=== PATIENT | female | born 1950 | race Caucasian/White ===

== ENCOUNTER 2018-10-19 22:39 | Emergency (ER) | payer MEDICARE ==
[~2018-10-19] VITALS: Ht 167.6 cm; Wt 122.6 kg
[2018-10-19] MEDS ORDERED: ONDANSETRON HCL/PF 4 MG/2 ML VIAL ONE (23:19)
[2018-10-19] MEDS ORDERED: IV NS 0.9% 1,000 ML BAG IV ONE (23:30)
[2018-10-19] MEDS ORDERED: DICYCLOMINE HCL INJ 20 MG/2 ML AMPUL IM ONE ×2 (23:30→23:33)
[2018-10-19] MEDS ORDERED: ONDANSETRON HCL/PF 4 MG/2 ML VIAL IVP ONE (23:30)
--- NOTE | 2018-10-19 23:30 | NUR ---
BIBSELF FROM HOME. AAOX4. NO RESP DISTRESS. AMBULATORY WITH WALKER. TO ER BED 9. C/O ABDOMINAL PAIN X 2 HOURS AGO AFTER EATING SALAD. PT REPORT NAUSEA, VOMITING AND DIARRHEA. PT DESCRIBES PAIN CRAMPING 01/06. MD AT BEDSIDE FOR EVAL. ORDERS RECEIVED
[2018-10-19 23:34] LABS: HEMOGLOBIN 10.9 g/dL (11.5-14.8); LYMPHOCYTES # (AUTO) 2.2 /CMM (0.8-4.8); MONOCYTES # (AUTO) 0.3 /CMM (0.1-1.30)
[2018-10-19 23:35] LABS: APPEARANCE,URINE Slightly Cloudy (CLEAR); BILIRUBIN,URINE Negative (NEGATIVE); BLOOD, URINE Trace-lysed Ery/uL (NEGATIVE); COLOR,URINE Yellow (YELLOW); KETONES,URINE Negative (NEGATIVE); LEUKOCYTE ESTERASE ,URINE Moderate (NEGATIVE); NITRITE, URINE Negative (NEGATIVE); PROTEIN,URINE Negative (NEGATIVE); UGLUCOSE Negative (NEGATIVE); UROBILINOGEN,URINE 0.2 EU/dL (0.2)
--- NOTE | 2018-10-19 23:35 | NUR ---
IV LINE OBATAINED ON R AC20G. BLOOD DRAWN AND GIVENT O IMPORT EXPORT COORDINATOR AT BEDSIDE.
[2018-10-19 23:41] LABS: BASOPHILS % (AUTO) 0.6 % (0.0-2.0); EOSINOPHILS % (AUTO) 2.1 % (0.0-6.0); HEMATOCRIT 33 % (33-45); LYMPHOCYTES % (AUTO) 54.8 % (20.0-44.0); MEAN CORPUSCULAR HGB CONC 34 g/dl (31.0-36.0); MEAN CORPUSCULAR VOLUME 108 fL (82-100); NEUTROPHILS # (AUTO) 1.4 /CMM (1.8-8.9); NEUTROPHILS % (AUTO) 34.5 % (43.0-81.0); PLATELET COUNT (AUTO) 166 /CMM (150-450); RED BLOOD CELL COUNT(AUTO) 3.02 MIL/uL (4.0-5.2)
[2018-10-19 23:44] LABS: CALCIUM, SERUM 8.9 mg/dL (8.5-10.1); CREATININE 0.7 mg/dL (0.6-1.3); POTASSIUM 3.6 mmol/L (3.5-5.1)
[2018-10-19 23:51] LABS: BACTERIA,URINE Moderate /HPF (None Seen); SQUAMOUS EPITHELIAL CELL,UR Few /HPF (None Seen); WBC,URINE 51-80 /HPF (0-3)
[2018-10-19 23:55] LABS: ALBUMIN 3.4 g/dL (3.4-5.0); BILIRUBIN,DIRECT 0.1 mg/dL (0.0-0.2); BILIRUBIN,TOTAL 0.2 mg/dL (0.2-1.0); TOTAL PROTEIN, SERUM 6.8 g/dL (6.4-8.2)
[2018-10-20 00:03] LABS: MONOCYTES % (MANUAL) 5 % (0-11.0); NEUTROPHILS % (MANUAL) 37 (42-76)
[2018-10-20 00:04] LABS: LYMPHOCYTES % (MANUAL) 58 % (16-48)
[2018-10-20] MEDS ORDERED: CEFTRIAXONE 1GM BAG (ER ONLY) 1 GM/50 ML PIGGYBACK IV ONE (00:30)
--- NOTE | 2018-10-20 00:35 | NUR ---
PT WHEELED TO CT ON [facility]
[2018-10-20] MEDS ORDERED: CEFTRIAXONE 1GM BAG (ER ONLY) 50 ML IV ONE (00:37)
--- NOTE | 2018-10-20 03:45 | NUR ---
Patient discharged to home in stable condition. Written and verbal after care instructions given. Patient verbalizes understanding of instruction.IV removed. Catheter intact and site benign. Pressure and 4x4 applied to site. No bleeding noted. Pt ambulatory with walker. Pt homeless, discahrged to waiting room for social service in am.
[2018-10-20 04:10] VITALS: BP 145/82
== END 2018-10-20 03:45 | disposition home or self-care (01) ==
LOC: ER 22:39
DX: R11.2 Nausea with vomiting, unspecified (principal); R19.7 Diarrhea, unspecified; N83.201 Unspecified ovarian cyst, right side; I11.0 Hypertensive heart disease with heart failure; I50.9 Heart failure, unspecified; I25.10 Atherosclerotic heart disease of native coronary artery without angina pectoris; I25.2 Old myocardial infarction; J44.9 Chronic obstructive pulmonary disease, unspecified; F32.9 Major depressive disorder, single episode, unspecified; F41.9 Anxiety disorder, unspecified; E66.01 Morbid (severe) obesity due to excess calories; Z86.73 Personal history of transient ischemic attack (TIA), and cerebral infarction without residual deficits; Z98.890 Other specified postprocedural states; Z59.0 Homelessness; Z88.5 Allergy status to narcotic agent
CPT/HCPCS: 36415; 74176; 80048; 80076; 81001; 83690; 85025; 85730; 87077; 87086; 87186; 96361; 96365; 96372; 96375; 99284; J0500; J0696; J2405; J7030; 81000-TC

== ENCOUNTER 2018-10-20 19:50 | Emergency (ER) | payer MEDICARE ==
[~2018-10-20] VITALS: Ht 167.6 cm; Wt 122.5 kg
--- NOTE | 2018-10-20 20:20 | NUR ---
C/O PT STATED "I FEEL DEPRESSED AND SOMETIMES I WANT TO KILL MY SELF". PT AAOX4, VSS. DENIES ANY OTHER DISCOMFORT. DENIES ANY PLAN OF HURSTING HERSELF AT THIS TIME. PT SEEN & EVAL'D BY DR. MAZARIEGOS & WILL CONT TO MONITOR.
[2018-10-20 20:36] LABS: EOSINOPHILS % (AUTO) 2.9 % (0.0-6.0); HEMATOCRIT 33 % (33-45); HEMOGLOBIN 10.9 g/dL (11.5-14.8); LYMPHOCYTES # (AUTO) 1.7 /CMM (0.8-4.8); LYMPHOCYTES % (AUTO) 50.7 % (20.0-44.0); MEAN CORPUSCULAR HGB CONC 33 g/dl (31.0-36.0); MEAN CORPUSCULAR VOLUME 108 fL (82-100); MONOCYTES # (AUTO) 0.2 /CMM (0.1-1.30); MONOCYTES % (AUTO) 5.4 % (2.0-12.0); NEUTROPHILS # (AUTO) 1.4 /CMM (1.8-8.9); PLATELET COUNT (AUTO) 176 /CMM (150-450); RED BLOOD CELL COUNT(AUTO) 3.04 MIL/uL (4.0-5.2); WHITE BLOOD COUNT (AUTO) 3.4 K/uL (4.3-11.0)
[2018-10-20 20:41] LABS: CARBON DIOXIDE 27 mmol/L (21-32); CHLORIDE 106 mmol/L (98-107); CREATININE 0.6 mg/dL (0.6-1.3); GLUCOSE 212 mg/dL (74-106); POTASSIUM 3.7 mmol/L (3.5-5.1); SODIUM SERUM 141 mmol/L (136-145); UREA NITROGEN, BLOOD 20 mg/dL (7-18)
[2018-10-20 20:56] LABS: ACETAMINOPHEN < 5 ug/ml (10-30); ALANINE AMINOTRANSFERASE 26 U/L (12-78); ALBUMIN 3.4 g/dL (3.4-5.0); ALCOHOL, BLOOD < 3 mg/dL (0-0); ALKALINE PHOSPHATASE 226 U/L (46-116); ASPARTATE AMINOTRANSFERASE 12 U/L (15-37); BILIRUBIN,TOTAL 0.2 mg/dL (0.2-1.0); SALICYLATE 1.3 mg/dL (2.8-20.0); TOTAL PROTEIN, SERUM 6.9 g/dL (6.4-8.2)
[2018-10-20] MEDS ORDERED: INSULIN REGULAR, HUMAN 100 UNIT/ML 10 ML VIAL SQ ONE (21:30)
[2018-10-20 21:33] LABS: LYMPHOCYTES % (MANUAL) 58 % (16-48); NEUTROPHILS % (MANUAL) 38 (42-76)
[2018-10-20] MEDS ORDERED: INSULIN REGULAR, HUMAN 100 UNIT/ML 10 ML VIAL ONE (21:33)
[2018-10-20 21:34] LABS: EOSINOPHILS % (MANUAL) 2 % (0-4); MONOCYTES % (MANUAL) 2 % (0-11.0)
--- NOTE | 2018-10-20 21:39 | NUR ---
MEDICATED ORDERED PER ERMD ORDER, PT KAL WELL.
--- NOTE | 2018-10-20 22:02 | NUR ---
CALLED ART FOR PSYCH EVAL, LEFT MESSAGE ON VOICEMAIL.
--- NOTE | 2018-10-20 22:04 | NUR ---
RECEIVED CALL BACK FROM ART, CHEMICAL PRODUCTION TECHNICIAN, ETA WITHIN THE HOUR.
--- NOTE | 2018-10-20 23:00 | NUR ---
ART, PERSONAL TRAINER AT FOR EVAL.
[2018-10-21] VITALS: BP 138/77
--- NOTE | 2018-10-21 00:43 | NUR ---
Patient discharged to home in stable condition. Written and verbal after care instructions given. Patient verbalizes understanding of instruction. provided w/ snacks. pt will go to her dtr's house.
--- NOTE | 2018-10-21 00:44 | NUR ---
. Patient given list of available shelters in surrounding area and other resources,
== END 2018-10-21 00:53 | disposition home or self-care (01) ==
LOC: ER 19:50
DX: F32.9 Major depressive disorder, single episode, unspecified (principal); E11.9 Type 2 diabetes mellitus without complications; I11.0 Hypertensive heart disease with heart failure; I50.9 Heart failure, unspecified; I25.10 Atherosclerotic heart disease of native coronary artery without angina pectoris; I25.2 Old myocardial infarction; J44.9 Chronic obstructive pulmonary disease, unspecified; F41.9 Anxiety disorder, unspecified; Z98.890 Other specified postprocedural states; Z86.73 Personal history of transient ischemic attack (TIA), and cerebral infarction without residual deficits; Z88.6 Allergy status to analgesic agent; Z59.0 Homelessness
CPT/HCPCS: 36415; 80048; 80076; 80307; 80329; 85025; 96372; 99285; G0480; J1815